=== PATIENT | female | born 1980 | race Caucasian/White ===

== ENCOUNTER 2022-05-28 10:07 | Emergency (ER) | payer OTHER, SELFPAY ==
[2022-05-28] VITALS (40 sets, daily range): BP systolic 94–115; BP diastolic 60–87; PULSE 90–91; RESP 12–17; TEMP 36.8; O2SAT 97–100; BMI 23.0
--- NOTE | 2022-05-28 12:20 | CT_ITS ---
WS: [id number] CT ABDOMEN PELVIS TECHNIQUE: Noncontrast CT of the abdomen and pelvis with coronal and sagittal reformatted images. CLINICAL INFORMATION: concern for kidney stone COMPARISON: None. DLP: 312.[address] scans at [facility] use at least one of these dose optimization techniques: automated e xposure control; mA and/or kV adjustment per patient size (includes targeted exams where dose is matc hed to clinical indication); or iterative reconstruction. FINDINGS: Bowel wall thickening with inflammatory stranding and induration involving the sigmoid colo n compatible with acute diverticulitis. Surrounding inflammatory stranding and edema in the pelvis. N o drainable abscess or fluid collection. No free air. Recommend follow-up to resolution. Fluid in the dorsal cul-de-sac. Adrenal glands are normal. No hydronephrosis in either kidney. No obstructing renal or ureteral calcu li. Slight bibasilar atelectasis. Noncontrast spleen is normal. Normal GE junction. Normal caliber abdomi nal aorta. Aortic calcification. Small fat-containing umbilical hernia. Noncontrast pancreas appears normal. Nor mal noncontrast gallbladder. Normal appendix in the RIGHT lower quadrant. Normal lumbar spine. CT/CT kidney stone [id number] IMPRESSION: 1. No obstructing renal or ureteral calculi. No hydronephrosis in either kidne y. 2. Diffuse inflammatory stranding and edema with thickening of the sigmoid col on compatible with acute diverticulitis. Surrounding inflammatory stranding and edema in the pelvic mesenteric fat. 3. Small amount of surrounding free fluid. No drainable abscess or fluid colle ction. Recommend follow-up to resolution. 4. No free air. 5. Normal appendix in the RIGHT lower quadrant. 6. No other suspicious findings. Notified Skyler Hendricks MD at 05/28/2022 2:04 PM.
--- NOTE | 2022-05-28 12:20 | ED_ITS ---
HPI - Abdominal Pain General: Chief Complaint: Abdominal Pain Stated Complaint: Lower back and abd pains Time Seen by Provider: 05/28/22 12:02 History of Present Illness: Patient comes in with suprapubic abdominal pain. She describes it as an ache that radiates into her back started about 5 days ago and is progressively gotten worse. States she has episodes where the pain is very sharp and severe but most the time is an ache. States it feels like she has to urinate at times but cannot. Denies any dysuria. Denies any fever, or diarrhea. States that when the pain hits her hard she does get nauseated. Denies any other sick symptoms including no cough or congestion. Associated Symptoms: Reports nausea; Denies dysuria, fever(s) and vomiting Review of Systems Const: Denies: fever(s) or body aches Eyes: Denies: change in vision or blurry vision ENMT: Denies: throat pain or odynophagia Card: Denies: chest pain or palpitations Resp: Denies: dyspnea or productive cough GI: Reports: abdominal pain and nausea; Denies: vomiting : Reports: flank pain; Denies: dysuria Musc: Denies: neck pain or back pain Skin/Breast: Denies: rash or pruritus Neuro: Denies: headache(s) or numbness in extremities Psych: Denies: anxiety or change in appetite Endo: Denies: polyuria or excessive sweating Physical Exam Const: COMMON NORMALS: no acute distress, patient oriented x3, healthy appearing and alert HENMT: COMMON NORMALS: normocephalic and atraumatic HEAD & SCALP: normocephalic and atraumatic Eye: COMMON NORMALS: Equal, round and reactive pupils present and EOMs intact bilaterally PUPIL: Yes Equal, round and reactive pupils present Neck/C-Spine: COMMON NORMALS: full ROM and supple Resp: COMMON NORMALS: normal respiratory effort, No retractions and No use of accessory muscles Cardio: COMMON NORMALS: regular rate and regular rhythm RATE: regular rate RHYTHM: regular rhythm GI: COMMON NORMALS: Normal to inspection, nondistended, normoactive bowel sounds present, Soft to palpation and non-tender PALPATION: Yes Soft to palpation Back/Pelvis: COMMON NORMALS: thoracic and lumbar spine normal to inspection and no thoracic nor lumbar tenderness Extremity: COMMON NORMALS: normal to inspection and full ROM Neuro: COMMON NORMALS: patient oriented x3 SENSORIUM/ORIENTATION: Yes alert Psych: COMMON NORMALS: mental status grossly normal and cooperative Skin: COMMON NORMALS: no rashes or lesions noted and no wounds GENERAL SKIN EXAM: no rashes or lesions noted Course Vital Signs: Vital signs: Vital Signs Temperature 98.3 F 05/28/22 11:23 Pulse Rate 91 05/28/22 12:16 Respiratory Rate 17 05/28/22 12:16 Blood Pressure 113/87 05/28/22 12:35 Pulse Oximetry 98 05/28/22 12:35 Oxygen Delivery Me thod 05/28/22 12:16 MDM - Abdominal Pain Medical Decision Making Patient comes in with suprapubic abdominal pain. She describes it as an ache that radiates into her back started about 5 days ago and is progressively gotten worse. States she has episodes where the pain is very sharp and severe but most the time is an ache. States it feels like she has to urinate at times but cannot. Denies any dysuria. Denies any fever, or diarrhea. States that when the pain hits her hard she does get nauseated. Denies any other sick symptoms including no cough or congestion. On physical exam her abdomen is soft, nontender. Will check labs, CT, treat pain with IV Toradol, give IV fluids, and reassess. On reassessment I talked to the patient about the test results. We will start her on antibiotics for diverticulitis and discharged with precautions to return for worsening or changing symptoms. Lab Data 05/28/22 12:28 05/28/22 12:28 Labs/Radiology: Radiology Impressions Abdomen/Pelvis CT 05/28/22 12:20 IMPRESSION: 1. No obstructing renal or ureteral calculi. No hydronephrosis in either kidney. 2. Diffuse inflammatory stranding and edema with thickening of the sigmoid colon compatible with acute diverticulitis. Surrounding inflammatory stranding and edema in the pelvic mesenteric fat. 3. Small amount of surrounding free fluid. No drainable abscess or fluid collection. Recommend follow-up to resolution. 4. No free air. 5. Normal appendix in the RIGHT lower quadrant. 6. No other suspicious findings. Notified Skyler Hendricks MD at 05/28/2022 2:04 PM. Laboratory Results WBC 13.2 10^3/uL (4.0-10.0) H 05/28/22 12: RBC 4.81 10^6/uL (4.1-5.3) 05/28/22 12:28 Hgb 15.4 g/dL (11.5-15.3) H 05/28/22 12: Hct 45.4 % (37.0-47.0) 05/28/22 12: MCV 94.4 fl (81-99) 05/28/22 12: MCH 32.0 pg (28.0-34.0) 05/28/22 12: MCHC 33.9 g/dL (30.0-36.0) 05/28/22 12: RDW 13.2 % (12.1-15.1) 05/28/22 12: Plt Count 328 10^3/cmm (130-400) 05/28/22 12: MPV 9.0 fL (7.4-10.4) 05/28/22 12: Neut % (Auto) 78.3 % 05/28/22 12: Lymph % (Auto) 11.9 % 05/28/22 12:28 [place] % (Auto) 8.5 % 05/28/22 12: Eos % (Auto) 0.5 % 05/28/22 12: Baso % (Auto) 0.4 % 05/28/22 12: Neut # (Auto) 10.34 10^3/uL (1.8-7.7) H 05/28/22 12: Lymph # (Auto) 1.6 10^3/uL (0.8-4.8) 05/28/22 12:28 [place] # (Auto) 1.1 10^3/uL (0.2-0.9) H 05/28/22 12:28 Eos # (Auto) 0.1 10^3/uL (0.0-0.8) 05/28/22 12: Baso # (Auto) 0.1 10^3/uL (0.0-0.1) 05/28/22 12: Nucleated RBC % (auto) 0 % 05/28/22 12: Nucleated RBCs # 0.0 /100WBC 05/28/22 12: Sodium 134 mmol/L (136-145) L 05/28/22 12: Potassium 4.0 mmol/L (3.5-5.1) 05/28/22 12: Chloride 98 mmol/L (98-107) 05/28/22 12: Carbon Dioxide 26 mmol/L (22-29) 05/28/22 12: Anion Gap 14.0 (5-19) 05/28/22 12: BUN 12 mg/dL (6-20) 05/28/22 12: Creatinine 0.7 mg/dL (0.5-0.9) 05/28/22 12: GFR Calculation 91.3 mL/min (90-130) 05/28/22 12: Glucose 85 mg/dL (65-115) 05/28/22 12: Calculated Osmolality 277 mOsm/kg (285-295) L 05/28/22 12: Calcium 9.6 mg/dL (8.5-10.5) 05/28/22 12: Total Bilirubin 0.4 mg/dL (0.15-1.2) 05/28/22 12: AST 12 U/L (0-32) 05/28/22 12: ALT 15 U/L (0-33) 05/28/22 12: Alkaline Phosphatase 91 U/L (35-105) 05/28/22 12: Total Protein 7.5 g/dL (6.6-8.7) 05/28/22 12: Albumin 4.2 g/dL (3.5-5.2) 05/28/22 12: Globulin 3.3 g/dL (1.3-4.6) 05/28/22 12: Lipase 16 U/L (13-60) 05/28/22 12: HCG, Qual Negative (Negative) 05/28/22 12: Urine Color Yellow (Yellow) 05/28/22 12: Urine Appearance Hazy (CLEAR) A 05/28/22 12: Urine pH 5 (5-7) 05/28/22 12: Ur Specific [place] 1.020 (1.005-1.030) 05/28/22 12: Urine Protein Trace (Negative) 05/28/22 12: Urine Glucose (UA) Norm (Normal) 05/28/22 12:28 Urine Ketones 1+ (Negative) H 05/28/22 12:28 Urine Blood 2+ (Negative) H 05/28/22 12:28 Urine Nitrate Negative (Negative) 05/28/22 12:28 Urine Bilirubin 1+ (Negative) H 05/28/22 12:28 Urine Urobilinogen 1 mg/dL (Negative) H 05/28/22 12:28 Ur Leukocyte Esterase Negative (Negative) 05/28/22 12:28 Urine RBC 0-4 /hpf (0-2) H 05/28/22 12:28 Urine WBC 0-4 /hpf (0-5) H 05/28/22 12:28 Ur Squamous Epith Cells Too numerous to cnt /hpf (0-5) H 05/28/22 12:28 Amorphous Sediment Not Reportable 05/28/22 12:28 Urine Bacteria 2+ /hpf (NONE) H 05/28/22 12:28 Discharge Plan Discharge Patient Disposition: Home Clinical Impression: Diverticulitis Condition: Stable Prescriptions: New ciprofloxacin HCl 500 mg tablet 500 mg PO Q12H 10 Days Qty: 20 0RF metronidazole 500 mg tablet 500 mg PO Q12H 10 Days Qty: 20 0RF Discharge Orders: Discharge ED (Routine); Ordered 05/28/22 Ordered By: Skyler Hendricks Patient Instructions: Diverticulitis Coding Level of Care Code ED Technical Communication Teacher for Mireilleg Fwd Exam Comprehensive
[2022-05-28 12:38] LABS: Basophils # 0.1 10^3/uL (0.0-0.1); Basophils % 0.4 %; Eosinophils # 0.1 10^3/uL (0.0-0.8); Eosinophils % 0.5 %; Hematocrit 45.4 % (37.0-47.0); Hemoglobin 15.4 g/dL (11.5-15.3); Lymphocytes # 1.6 10^3/uL (0.8-4.8); Lymphocytes % 11.9 %; Mean Corpuscular HGB Conc 33.9 g/dL (30.0-36.0); Mean Corpuscular Volume 94.4 fl (81-99); Monocytes # 1.1 10^3/uL (0.2-0.9); Monocytes % 8.5 %; Neutrophils # 10.34 10^3/uL (1.8-7.7); Neutrophils % 78.3 %; Nucleated Red Blood Cells % 0 %; Platelet Count 328 10^3/cmm (130-400); Red Blood Count 4.81 10^6/uL (4.1-5.3); Red Cell Distribution Width 13.2 % (12.1-15.1); White Blood Count 13.2 10^3/uL (4.0-10.0)
[2022-05-28] MEDS: ketorolac 30 mg/mL INJ 15 MG IVP (12:39)
[2022-05-28] MEDS: sodium chloride 0.9% 1,000 ML 999 ML IV (12:39)
[2022-05-28 12:58] LABS: Alanine Aminotransferase 15 U/L (0-33); Albumin Level 4.2 g/dL (3.5-5.2); Alkaline Phosphatase 91 U/L (35-105); Aspartate Amino Transferase 12 U/L (0-32); Blood Urea Nitrogen 12 mg/dL (6-20); Calcium 9.6 mg/dL (8.5-10.5); Carbon Dioxide 26 mmol/L (22-29); Chloride 98 mmol/L (98-107); Globulin 3.3 g/dL (1.3-4.6); Glomerular Filtration Rate 91.3 mL/min (90-130); Glucose 85 mg/dL (65-115); Lipase 16 U/L (13-60); Osmolality Calculated 277 mOsm/kg (285-295); Sodium 134 mmol/L (136-145); Total Bilirubin 0.4 mg/dL (0.15-1.2); Total Protein 7.5 g/dL (6.6-8.7)
[2022-05-28 13:00] LABS: HCG, Serum Qual Negative (Negative)
[2022-05-28 13:04] LABS: Urine Appearance Hazy (CLEAR); Urine Color Yellow (Yellow); pH Urine 5 (5-7)
[2022-05-28 13:05] LABS: Add Urine Culture? Yes; Add Urine Microscopic? YES; Bacteria Urine 2+ /hpf; Bilirubin Urine 1+ (Negative); Blood Urine 2+ (Negative); Glucose Urine UA Norm (Normal); Ketones Urine 1+ (Negative); Leukocyte Esterase Urine Negative (Negative); Nitrate Urine Negative (Negative); Protein Urine Trace (Negative); RBC Urine 0-4 /hpf (0-2); Squamous Epithelial Cell Urine TOO NUMEROUS TO CNT /hpf (0-5); Urobilinogen Urine 1 mg/dL (Negative); WBC Urine 0-4 /hpf (0-5)
[2022-05-28] MEDS: ciprofloxacin 500 mg Tablet PO (15:32)
[2022-05-28] MEDS: metroNIDAZOLE 500 MG Tablet PO (15:32)
== END 2022-05-28 15:37 | disposition home or self-care (01) ==
PROVIDERS: Emergency Provider Emergency Medicine
DX: K57.92 Diverticulitis of intestine, part unspecified, without perforation or abscess without bleeding (principal)
CPT/HCPCS: 74176; 80053; 81001; 83690; 84703; 85025; 87086; 96361; 96374; 99285; J1885; J7030